=== PATIENT | male | born 1965 | race Caucasian/White ===

== ENCOUNTER → 2019-01-03 | Outpatient (CLI) | payer MEDICAID ==
--- NOTE | 2019-01-03 15:39 | RADIOLOGY IMAGING REPORT ---
FACILITY: [facility] PATIENT NAME: Sergio Noriega : 1965 MR: [id number] V: [id number] EXAM DATE: ORDERING PHYSICIAN: GREGORY RIVAS TECHNOLOGIST: Location: [facility] Patient: Sergio Noriega : 1965 Visit/Account:[id number] Date of Sevice: 01/03/2019 Exam type: CHEST PA LAT History: Cough, smoking history Comparison: None. Findings: The lungs are free of acute effusions, infiltrates or edema. There is mild central peribronchial thi ckening present The cardiac silhouette is normal in size. The trachea is in midline. IMPRESSION: 1. There is mild central peribronchial thickening present. This may be chronic although an acute pe ribronchial inflammatory process cannot be excluded Report Dictated By: Joanne Leonard MD at 01/03/2019 3:32 PM Report E-Signed By: Joanne Leonard MD at 01/03/2019 3:34 PM WSN:[email or web address]
== END ==
LOC: RAD 12:58
PROVIDERS: ATTEND Nurse Practitioner Psychiatric/Mental Health
DX: R05 Cough (principal)
CPT/HCPCS: 71046